=== PATIENT | female | born 1950 | race Caucasian/White ===

== ENCOUNTER 2017-09-30 09:40 | Day surgery (SDC) | payer OTHER ==
[2017-09-29 11:30] VITALS: BMI 25.6
[2017-09-30] MEDS: PHENYLEPHRINE 2.5% OPHTH SOLN 15 ML BOTTLE ONE ×5 (10:55→11:15)
[2017-09-30] MEDS: KETOROLAC TROMETHAMINE 0.5% 5 ML BOTTLE OPTHALMIC ONE ×5 (10:55→11:15)
[2017-09-30] MEDS: TROPICAMIDE 1% OPHTH SOLN 15 ML BOTTLE ONE ×5 (10:55→11:15)
[2017-09-30] MEDS: CYCLOPENTOLATE HCL 1% OPHTH SOLN 2 ML BOTTLE ONE ×5 (10:55→11:15)
[2017-09-30] MEDS: GENTAMICIN SULFATE 0.3% OPHTHALMIC (EYE DROPS) 5ML BOTTLE ONE ×2 (10:55→11:10)
[2017-09-30] MEDS ORDERED: ACETAMINOPHEN 325 MG TABLET (FP) PO PRN (12:21)
[2017-09-30] MEDS ORDERED: ACETYLCHOLINE 1:100 INTRA-OCUL 20 MG/2 ML KIT ONE (12:22)
[2017-09-30] MEDS ORDERED: BUPIVACAINE HCL/PF 0.5% (5MG/ML) 10 ML VIAL ONE ×2 (12:22→13:13)
[2017-09-30] MEDS ORDERED: LIDOCAINE HCL/PF 2% SDV 5ML VIAL ONE ×2 (12:22→13:13)
[2017-09-30] MEDS ORDERED: LIDOCAINE HCL 2% JELLY 10 ML CARTRIDGE ONE (12:22)
[2017-09-30 14:39] VITALS: TEMP 97.6
[2017-09-30 14:59] VITALS: BP 162/83; PULSE 60
--- NOTE | 2017-09-30 16:01 | OP ---
DATE OF OPERATION: 09/30/2017 PREOPERATIVE DIAGNOSES: 1. Cataract, right eye. 2. Narrow angle glaucoma, right eye. POSTOPERATIVE DIAGNOSES: 1. Cataract, right eye. 2. Narrow angle glaucoma, right eye. PROCEDURE PERFORMED: Planned extracapsular cataract extraction via phacoemulsification with insertion of posterior chamber lens implant and a filtering procedure of the right eye. SURGEON: Alfonso Davison MD AUTOMOTIVE PAINTER HELPER: None. ANESTHESIA: Local with stand-by. NURSE BILINGUAL OPERATOR: FONDANT PUFF MAKER ANESTHESIOLOGIST: Ivone Sanabria MD COMPLICATIONS: None. DESCRIPTION OF PROCEDURE: After successful peribulbar anesthesia was given to the right eye, the patient was prepped and draped in the usual manner to expose the right eye. Tegaderm strips and a lid speculum were inserted into the right eye, and the room microscope was brought in a positioned over the eye. A superior fornix-based flap was then fashioned for 12 mm using Turner scissors and 0.12 forceps. Hemostasis was achieved with wet field cautery. A limbal groove was fashioned for 3 mm with a crescent blade, dissecting anteriorly into clear cornea. Then a 3-mm blade was used to enter the anterior chamber. Under Viscoat a 360-degree anterior capsulotomy was performed and the removed from the eye. Then phacoemulsification of this 2+ hard nucleus, which was quite opacified, was done in approximately 2 minutes' time, followed by irrigation and aspiration of all cortical material, leaving intact posterior capsule and a red reflex present. It should be noted that the extraction somewhat difficult due to the floppy iris. Provisc was used to fill the posterior chamber to push back the posterior capsule. Then the implant was inspected carefully with the microscope. It was folded and placed in the Provisc-filled cartridge. The cartridge was placed in the injector, and the implant was injected into the eye such that the inferior haptic was in the inferior capsular bag and the superior haptic was in the superior capsular bag and rotated into the horizontal position with a Sinskey hook. The Provisc was then aspirated out. Prior to removal of the Provisc, attention was focused to the trabecular meshwork, where a block measuring 3.5 x 1-mm was excised using Vannas scissors and 0.12 forceps. A peripheral iridotomy had been placed there before with a laser at the 11 o'clock position. This was enlarged slightly. The Provisc was aspirated out with placement of Miochol, Miostat and BSS. The wound was closed with a loosely-tied single interrupted 2-0 Ethilon suture. With side-port irrigation, infiltration was established superiorly. Then conjunctival Tenon flap was reapproximated. At this point the implant was fixated in the capsular bag, centrally located, with a round pupil, intact posterior capsule and a red reflex present. A superior filtering bleb was beginning to form superiorly. Topical Betoptic S and Maxitrol ophthalmic suspensions were placed, as was bacitracin ophthalmic ointment. Then the Tegaderm strips and lid speculum were removed from the eye. The lids were closed, and a patch and shield placed on the eye. The patient was then discharged from the operating room to the recovery area in good condition, having tolerated the procedure well. Willem [id number]
== END 2017-09-30 15:00 | disposition home or self-care (01) ==
LOC: FASU 09:40
PROVIDERS: ATTEND Ophthalmology
PROC: 08123Z4 Bypass Right Anterior Chamber to Sclera, Percutaneous Approach (ICD-10-PCS; 2017-09-30)
PROC: 08RJ3JZ Replacement of Right Lens with Synthetic Substitute, Percutaneous Approach (ICD-10-PCS; principal; 2017-09-30 13:34)
DX: H26.8 Other specified cataract (principal); H40.20X0 Unspecified primary angle-closure glaucoma, stage unspecified

== ENCOUNTER 2017-10-28 10:02 | Day surgery (SDC) | payer OTHER ==
[2017-10-16 12:05] VITALS: BMI 25.9
[2017-10-28] MEDS: GENTAMICIN SULFATE 0.3% OPHTHALMIC (EYE DROPS) 5ML BOTTLE OS ONE ×2 (09:45→09:55)
[2017-10-28] MEDS: KETOROLAC TROMETHAMINE 0.5% 5 ML BOTTLE OPTHALMIC OS ONE ×5 (09:45→10:05)
[2017-10-28] MEDS: TROPICAMIDE 1% OPHTH SOLN 15 ML BOTTLE OS ONE ×5 (09:45→10:05)
[2017-10-28] MEDS: PHENYLEPHRINE 2.5% OPHTH SOLN 15 ML BOTTLE OS ONE ×5 (09:45→10:05)
[2017-10-28] MEDS: CYCLOPENTOLATE HCL 1% OPHTH SOLN 2 ML BOTTLE OS ONE ×5 (09:45→10:05)
[2017-10-28] MEDS ORDERED: BSS (NA/CA/MG/K) BALANCED SALT SOLUTION OPHTH SOLN 15 ML BOTTLE ONE (10:53)
[2017-10-28] MEDS ORDERED: ACETYLCHOLINE 1:100 INTRA-OCUL 20 MG/2 ML KIT ONE (10:53)
[2017-10-28] MEDS ORDERED: BUPIVACAINE HCL/PF 0.5% (5MG/ML) 10 ML VIAL ONE (10:53)
[2017-10-28] MEDS ORDERED: LIDOCAINE HCL/PF 2% SDV 5ML VIAL ONE ×2 (10:53→11:17)
[2017-10-28] MEDS ORDERED: ACETAMINOPHEN 325 MG TABLET (FP) PO PRN (10:55)
[2017-10-28] MEDS ORDERED: LIDOCAINE 1% P/F 10 MG/ML VIAL ONE (11:48)
[2017-10-28] MEDS ORDERED: ACETAMINOPHEN INJECTION 100 ML IVPB ONE (12:22)
[2017-10-28] MEDS ORDERED: ACETAMINOPHEN 325 MG TABLET (FP) ONE (14:44)
--- NOTE | 2017-10-28 15:37 | OP ---
DATE OF OPERATION: 10/28/2017 TITLE OF PROCEDURE: Planned extracapsular cataract extraction, phacoemulsification, insertion of posterior chamber lens implant, left eye, with a miotic pupil requiring iris hooks. PREOPERATIVE DIAGNOSIS: Cataract left eye. Pupillary miosis, left eye. POSTOPERATIVE DIAGNOSIS: Cataract left eye. Pupillary miosis, left eye. SURGEON: Alfonso Davison M.D. SUPERVISORY TRAINING SPECIALIST: Alfonso Davison M.D. COMPLICATIONS: None. ANESTHESIOLOGIST: Al Rios M.D. ANESTHESIA: Local standby. FINDINGS AND PROCEDURE: After successful peribulbar anesthesia was given to the left eye, the patient was prepped and draped in the usual manner to expose the left eye. The lid speculum were inserted and the microscope brought into position over the eye. Tegaderm strips and a lid speculum were inserted, and microscope brought into position over the left eye as mentioned, and attention was focused at the temporal area, where a 2.4-mm incision was made, as was a Micro-Sharp 15-degree blade incision. It was decided to use iris hooks due to the pupillary miosis. So 5 iris hooks were placed to enlarge the pupil from 4 mm to approximately 8 mm. Viscoat was injected to the anterior chambers to deepen it, and then using a Utrata forceps, the anterior capsulorrhexis was performed without complication followed by phacoemulsification, and then divide and conquer technique without complication, and irrigation aspiration of all cortical material followed without complication, leaving intact posterior capsule and a red reflex present. Provisc was injected in the posterior chamber to deepen the posterior capsule, and then the implant was inspected and found to be free of defects and free of flaws. It was then placed in the injector, injected in the cartridge, and then the implant was injected in the posterior chamber without complication. This was followed by irrigation, aspiration of all Viscoat and Provisc, and followed by replaced with Miochol, Miostat, and BSS. The iris hooks were removed after the irrigation of the Provisc and Viscoat, and the incisions were closed with saline injections intracorneally, and tested for leak and none was found. And then at this point the implant was fixated in the capsular bag, centrally located with a round pupil intact posterior capsule and a red reflex present. Topical Betoptic S and Maxitrol ophthalmic suspensions were placed as was bacitracin, polymyxin B, ophthalmic ointment. The Tegaderm strips and the lid speculum were removed from the lids, the lids were closed, and a patch and shield placed on the eye. The patient was then discharged from the operating room into the recovery area in good condition, having tolerated the procedure well. Willem CARDOZA/[id number]
[2017-10-28 15:55] VITALS: TEMP 97.7
[2017-10-28 17:42] VITALS: BP 154/78; PULSE 65
== END 2017-10-28 15:45 | disposition home or self-care (01) ==
LOC: FASU 10:02
PROVIDERS: ATTEND Ophthalmology
PROC: 08RK3JZ Replacement of Left Lens with Synthetic Substitute, Percutaneous Approach (ICD-10-PCS; principal; 2017-10-28 11:40)
DX: H26.9 Unspecified cataract (principal); H57.03 Miosis